=== PATIENT | male | born 1980 | race Caucasian/White ===

== ENCOUNTER 2021-12-06 12:01 | Emergency (ER) | payer SELFPAY ==
[2021-12-06 12:26] VITALS: BP 167/111; PULSE 79; RESP 18; TEMP 36.7; O2SAT 98; BMI 25.6
[2021-12-06 13:45] LABS: Basophils # 0.1 10^3/uL (0.0-0.1); Basophils % 1.1 %; Eosinophils # 0.5 10^3/uL (0.0-0.8); Hematocrit 55.8 % (42.0-52.0); Hemoglobin 17.5 g/dL (11.7-16.6); Lymphocytes # 2.3 10^3/uL (0.8-4.8); Lymphocytes % 22.5 %; Mean Corpuscular HGB Conc 31.4 g/dL (30.0-36.0); Mean Corpuscular Hemoglobin 30.1 pg (28.0-34.0); Mean Corpuscular Volume 95.9 fl (80-94); Mean Platelet Volume 10.1 fL (7.4-10.4); Monocytes # 0.8 10^3/uL (0.2-0.9); Monocytes % 7.3 %; Neutrophils # 6.59 10^3/uL (1.8-7.7); Neutrophils % 63.9 %; Nucleated Red Blood Cells % 0 %; Platelet Count 227 10^3/cmm (130-400); Red Blood Count 5.82 10^6/uL (4.1-5.3); Red Cell Distribution Width 13.3 % (12.1-15.1); White Blood Count 10.3 10^3/uL (4.0-10.0)
[2021-12-06 14:14] LABS: Alanine Aminotransferase 153 U/L (0-41); Albumin Level 4.2 g/dL (3.5-5.2); Alkaline Phosphatase 131 U/L (40-130); Blood Urea Nitrogen 38 mg/dL (6-20); Calcium 9.2 mg/dL (8.5-10.5); Carbon Dioxide 22 mmol/L (22-29); Chloride 104 mmol/L (98-107); Glomerular Filtration Rate 31.2 mL/min (90-130); Glucose 83 mg/dL (65-115); Lipase 27 U/L (13-60); Osmolality Calculated 292 mOsm/kg (285-295); Sodium 137 mmol/L (136-145); Total Bilirubin 0.5 mg/dL (0.15-1.2); Total Protein 7.2 g/dL (6.6-8.7)
[2021-12-06 14:16] LABS: Anion Gap 16.5 (5-19); Aspartate Amino Transferase 74 U/L (0-40); Potassium 5.5 mmol/L (3.5-5.1)
--- NOTE | 2021-12-06 16:24 | ED_ITS ---
HPI - Abdominal Pain General: Chief Complaint: Abdominal Pain Stated Complaint: Abd pains Time Seen by Provider: 12/06/21 13:17 Source: patient Mode of arrival: ambulatory Limitations: no limitations History of Present Illness: 41-year-old male presents to the emergency room with complaints of of flank pain bilaterally. He states he has had it for the last 2 weeks. He has a history of polycystic kidney disease. Last few days has been worsening. Denies any dysuria urgency or frequency nausea vomiting or diarrhea. No hematochezia melena hematemesis coffee-ground emesis no chest pain. He has not noticed anything that exacerbates or relieves his symptoms. MD elicited complaint: flank pain Pertinent past history: other (Polycystic kidney disease) Onset (ago): week(s) (2) Pain Consistency: constant Location: L flank and R flank Severity: moderate Quality: aching Radiation: none Migration to: no migration Exacerbating factors: nothing Relieving factors: nothing Associated Symptoms: Reports GI cramping; Denies anorexia, belching, bloating, change in bowel habits, change in stool character, chills, constipation, diarrhea, dyspepsia, dysuria, excessive flatus, fever(s), heartburn, hematochezia, hematuria, hematemesis, fecal incontinence, loose stools, melena, nausea, poor appetite, syncope and vomiting Review of Systems Const: Denies: fever(s) or chills ENMT: Denies: throat pain, ear or mastoid pain, nasal discharge or nasal congestion Card: Denies: syncope Resp: Denies: dyspnea, productive cough or non-productive cough GI: Reports: GI cramping; Denies: nausea, vomiting, hematemesis, heartburn, diarrhea, constipation, bloating, belching, excessive flatus, fecal incontinence, change in bowel habits, change in stool character, hematochezia or melena : Denies: dysuria or hematuria Skin/Breast: Denies: rash or pruritus PFSH ED PFSH: Medical History (Updated 12/07/21 @ 06:10 by Juan Morales DO) Polycystic kidney disease Social History (Updated 12/07/21 @ 06:10 by Juan Morales DO) Smoking and tobacco status: current every day smoker Alcohol intake: current Physical Exam Const: GENERAL APPEARANCE: cooperative and comfortable ORIENTATION /CONSCIOUSNESS: Yes awake, Yes oriented to person, Yes oriented to place and Yes oriented to time HENMT: COMMON NORMALS: normocephalic, atraumatic and hearing grossly normal bilaterally HEAD & SCALP: normocephalic and atraumatic Resp: COMMON NORMALS: normal respiratory effort, No retractions, No use of accessory muscles and clear to auscultation bilaterally AUSCULTATION: clear to auscultation bilaterally Cardio: COMMON NORMALS: regular rate, regular rhythm and No murmurs present (Cardio) RATE: regular rate RHYTHM: regular rhythm GI: COMMON NORMALS: Soft to palpation and No hepatosplenomegaly present AUSCULTATION: Yes normoactive bowel sounds PALPATION: Yes Soft to palpation, No Tenderness to palpation present (GI), No Guarding due to palpation present (GI) and Yes No hepatosplenomegaly present Extremity: COMMON NORMALS: normal to inspection, capillary refill normal, no clubbing, cyanosis or edema, no calf tenderness and no pedal edema Neuro: SENSORIUM/ORIENTATION: Yes oriented to person, Yes oriented to place and Yes oriented to time Skin: COMMON NORMALS: no rashes or lesions noted GENERAL SKIN EXAM: no rashes or lesions noted Course Vital Signs: Vital signs: Vital Signs Temperature 98.1 F 12/06/21 12:26 Pulse Rate 79 12/06/21 12:26 Respiratory Rate 18 12/06/21 12:26 Blood Pressure 167/111 12/06/21 12:26 Pulse Oximetry 98 12/06/21 12:26 Oxygen Delivery Me thod 12/06/21 12:26 MDM - Abdominal Pain Medical Decision Making Mild hyperkalemia elevated creatinine and BUN. Patient given IV fluids he states he otherwise feels fine. He would like to follow-up as an outpatient will make arrangements for him to get a repeat BMP later this week. Given tramadol to use for pain. 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 Did stressed to him the importance of rechecking basic metabolic profile in the next couple of days. Medical Records I reviewed the patient's medical records. Lab Data I reviewed the patient's lab results. : 12/06/21 13:39 12/06/21 13:39 Labs/Radiology: Laboratory Results WBC 10.3 10^3/uL (4.0-10.0) H 12/06/21 13:39 RBC 5.82 10^6/uL (4.1-5.3) H 12/06/21 13:39 Hgb 17.5 g/dL (11.7-16.6) H 12/06/21 13:39 Hct 55.8 % (42.0-52.0) H 12/06/21 13:39 MCV 95.9 fl (80-94) H 12/06/21 13:39 MCH 30.1 pg (28.0-34.0) 12/06/21 13:39 MCHC 31.4 g/dL (30.0-36.0) 12/06/21 13:39 RDW 13.3 % (12.1-15.1) 12/06/21 13:39 Plt Count 227 10^3/cmm (130-400) 12/06/21 13:39 MPV 10.1 fL (7.4-10.4) 12/06/21 13:39 Neut % (Auto) 63.9 % 12/06/21 13:39 Lymph % (Auto) 22.5 % 12/06/21 13:39 [place] % (Auto) 7.3 % 12/06/21 13:39 Eos % (Auto) 5.0 % 12/06/21 13:39 Baso % (Auto) 1.1 % 12/06/21 13:39 Neut # (Auto) 6.59 10^3/uL (1.8-7.7) 12/06/21 13:39 Lymph # (Auto) 2.3 10^3/uL (0.8-4.8) 12/06/21 13:39 [place] # (Auto) 0.8 10^3/uL (0.2-0.9) 12/06/21 13:39 Eos # (Auto) 0.5 10^3/uL (0.0-0.8) 12/06/21 13:39 Baso # (Auto) 0.1 10^3/uL (0.0-0.1) 12/06/21 13:39 Nucleated RBC % (auto) 0 % 12/06/21 13:39 Nucleated RBCs # 0.0 /100WBC 12/06/21 13:39 Sodium 137 mmol/L (136-145) 12/06/21 13:39 Potassium 5.5 mmol/L (3.5-5.1) H 12/06/21 13:39 Chloride 104 mmol/L (98-107) 12/06/21 13:39 Carbon Dioxide 22 mmol/L (22-29) 12/06/21 13:39 Anion Gap 16.5 (5-19) 12/06/21 13:39 BUN 38 mg/dL (6-20) H 12/06/21 13:39 Creatinine 2.3 mg/dL (0.7-1.2) H 12/06/21 13:39 GFR Calculation 31.2 mL/min (90-130) L 12/06/21 13:39 Glucose 83 mg/dL (65-115) 12/06/21 13:39 Calculated Osmolality 292 mOsm/kg (285-295) 12/06/21 13:39 Calcium 9.2 mg/dL (8.5-10.5) 12/06/21 13:39 Total Bilirubin 0.5 mg/dL (0.15-1.2) 12/06/21 13:39 AST 74 U/L (0-40) H 12/06/21 13:39 ALT 153 U/L (0-41) H 12/06/21 13:39 Alkaline Phosphatase 131 U/L (40-130) H 12/06/21 13:39 Total Protein 7.2 g/dL (6.6-8.7) 12/06/21 13:39 Albumin 4.2 g/dL (3.5-5.2) 12/06/21 13:39 Globulin 3.0 g/dL (1.3-4.6) 12/06/21 13:39 Lipase 27 U/L (13-60) 12/06/21 13:39 Urine Color Yellow (Yellow) 12/06/21 16:33 Urine Appearance Clear (CLEAR) 12/06/21 16:33 Urine pH 5 (5-7) 12/06/21 16:33 Ur Specific [place] 1.015 (1.005-1.030) 12/06/21 16:33 Urine Protein 1+ (Negative) H 12/06/21 16:33 Urine Glucose (UA) Norm (Normal) 12/06/21 16:33 Urine Ketones Negative (Negative) 12/06/21 16:33 Urine Blood 2+ (Negative) H 12/06/21 16:33 Urine Nitrate Negative (Negative) 12/06/21 16:33 Urine Bilirubin Neg (Negative) 12/06/21 16:33 Urine Urobilinogen Norm mg/dL (Negative) 12/06/21 16:33 Ur Leukocyte Esterase Negative (Negative) 12/06/21 16:33 Urine RBC 0-4 /hpf (0-2) H 12/06/21 16:33 Urine WBC 0-4 /hpf (0-5) H 12/06/21 16:33 Ur Squamous Epith Cells 0-4 /hpf (0-5) H 12/06/21 16:33 Amorphous Sediment Not Reportable 12/06/21 16:33 Urine Bacteria None /hpf (NONE) 12/06/21 16:33 Hyaline Casts 0-4 /lpf H 12/06/21 16:33 Discharge Plan Discharge Patient Disposition: Home Clinical Impression: Polycystic kidney disease Condition: Stable Prescriptions: New tramadol 50 mg tablet 50 mg PO Q6H PRN (Reason: pain) Qty: 14 0RF Discharge Orders: Discharge ED (Routine); Ordered 12/06/21 Ordered By: Juan Morales Patient Instructions: Opioid Safety Activity Restrictions/Additional Instructions: Case management will call to arrange for follow-up for you. You need to have a basic metabolic profile rechecked in 2 days. Coding Level of Care Code ED Police Lieutenant for [place] Fwd Exam Detailed
[2021-12-06 16:46] LABS: Bilirubin Urine Neg (Negative); Blood Urine 2+ (Negative); Glucose Urine UA Norm (Normal); Ketones Urine Negative (Negative); Leukocyte Esterase Urine Negative (Negative); Nitrate Urine Negative (Negative); Protein Urine 1+ (Negative); Specific Gravity, Urine 1.015 (1.005-1.030); Urine Appearance Clear (CLEAR); Urine Color Yellow (Yellow); Urobilinogen Urine Norm (Negative); pH Urine 5 (5-7)
[2021-12-06 16:47] LABS: Add Urine Culture? No; Add Urine Microscopic? YES; Hyaline Casts Urine 0-4 /lpf; RBC Urine 0-4 /hpf (0-2); Squamous Epithelial Cell Urine 0-4 /hpf (0-5); WBC Urine 0-4 /hpf (0-5)
[2021-12-06] MEDS: sodium chloride 0.9% 1,000 ML 999 ML IV ×2 (17:09→17:38)
--- NOTE | 2021-12-07 13:38 | DCPLANNER ---
construction project manager had message to speak with patient about getting established with a primary care physician. construction project manager called phone number [phone] - unable to speak with patient at this time.
== END 2021-12-06 18:19 | disposition home or self-care (01) ==
PROVIDERS: Physician Assistant; Emergency Provider Family Medicine
DX: Q61.3 Polycystic kidney, unspecified (principal); F17.210 Nicotine dependence, cigarettes, uncomplicated
CPT/HCPCS: 80053; 81001; 83690; 85025; 99284; J7030

== ENCOUNTER 2024-09-04 21:44 | Emergency (ER) | payer SELFPAY ==
[2024-09-04 21:58] VITALS: BP 225/134; PULSE 86; RESP 16; TEMP 36.7; O2SAT 96; BMI 26.2
[2024-09-04 22:14] LABS: Bilirubin Urine Negative (Negative); Blood Urine 3+ (Negative); Glucose Urine UA Trace (Normal); Ketones Urine Negative (Negative); Leukocyte Esterase Urine Trace (Negative); Nitrate Urine Negative (Negative); Protein Urine 2+ (Negative); Specific Gravity, Urine 1.009 (1.005-1.030); Urine Appearance Clear (CLEAR); Urobilinogen Urine 0.2 mg/dL (Negative); pH Urine 6.5 (5-7)
[2024-09-04 22:16] LABS: Add Urine Microscopic? YES; Bacteria Urine None Seen /hpf; Hyaline Casts Urine 0-4 /lpf; RBC Urine >100 /hpf (0-2); Squamous Epithelial Cell Urine 0-5 /hpf (0-5)
[2024-09-04 22:18] LABS: Add Urine Culture? Yes; Urine Color Red (Yellow)
[2024-09-04 22:45] LABS: Basophils # 0.1 10^3/uL (0.0-0.1); Basophils % 1.1 %; Eosinophils # 0.8 10^3/uL (0.0-0.8); Eosinophils % 8.4 %; Hematocrit 36.2 % (37-53); Lymphocytes # 1.8 10^3/uL (0.8-4.8); Lymphocytes % 20.2 %; Mean Corpuscular HGB Conc 32.9 g/dL (30-55); Mean Corpuscular Volume 91.2 fl (82-101); Mean Platelet Volume 9.8 fL (7.4-10.4); Monocytes # 0.8 10^3/uL (0.2-0.9); Monocytes % 9.2 %; Neutrophils # 5.41 10^3/uL (1.8-7.7); Neutrophils % 60.9 %; Nucleated Red Blood Cells % 0 %; Platelet Count 235 10^3/cmm (157-399); Red Blood Count 3.97 10^6/uL (3.85-5.65); Red Cell Distribution Width 13.6 % (12.1-15.1)
[2024-09-04 23:04] LABS: Anion Gap 20.1 (5-19); Calcium 8.8 mg/dL (8.5-10.5); Carbon Dioxide 18 mmol/L (22-29); Chloride 104 mmol/L (98-107); Creatinine Clr Calc Pharmacy 17.2307; Glomerular Filtration Rate 8.8 mL/min (90-130); Glucose 85 mg/dL (65-115); Osmolality Calculated 308 mOsm/kg (285-295); Potassium 5.1 mmol/L (3.5-5.1); Sodium 137 mmol/L (136-145)
[2024-09-04 23:11] LABS: Blood Urea Nitrogen 81 mg/dL (6-20)
--- NOTE | 2024-09-04 23:15 | CTR_ITS ---
PROCEDURE INFORMATION: Exam: CT Abdomen And Pelvis Without Contrast Exam date and time: 09/04/2024 11:47 PM Age: 43 years old Clinical indication: Abdominal pain; Bilateral flank pain; Hematuria x 3 days; HX polycystic kidney disease TECHNIQUE: Imaging protocol: Computed tomography of the abdomen and pelvis without contrast. Radiation optimization: All CT scans at this facility use at least one of these dose optimization techniques: automated exposure control; mA and/or kV adjustment per patient size (includes targeted exams where dose is matched to clinical indication); or iterative reconstruction. COMPARISON: No relevant prior studies available. RADIATION DOSE METRICS: Total DLP (mGy-cm): 888.13 FINDINGS: Lungs: Clear basilar lung parenchyma. Pleural spaces: No pleural fluid. Heart: Normal heart size. Liver: Normal configuration. Homogeneous parenchyma. Gallbladder and biliary ducts: Postprandial gallbladder is contracted. Pancreas: No visible pancreatic edema. In the pancreatic tail there is a 7 mm low-attenuation focus with a posterior calcification which warrants further characterization. Spleen: Normal. No splenomegaly. Adrenal glands: Normal configuration. Kidneys and ureters: Enlarged polycystic kidneys are noted. No evidence of renal obstruction on either side. No evidence of perinephric hemorrhage. Stomach and bowel: Unremarkable. No obstruction. No mural thickening. Appendix: Prior appendectomy. Intraperitoneal space: No free air. No significant fluid collection. Vasculature: Normal caliber arterial structures. Lymph nodes: No enlarged lymph nodes. Urinary bladder: Unremarkable as visualized. Reproductive: Physiologic appearance for age. Bones/joints: No fracture or destructive lesion. Soft tissues: Unremarkable. CT/CT kidney stone [id number] IMPRESSION: 1. Findings of autosomal dominant polycystic kidney disease are demonstrated. No evidence of renal calculus or obstruction. Exact etiology of patient's hematuria is unclear. 2. Indeterminate 7 mm low-attenuation focus in the pancreatic tail warrants further characterization. Consider pancreas protocol MR on a nonemergent basis.
[2024-09-05 00:15] VITALS: BP 212/135; PULSE 79; O2SAT 98
[2024-09-05] MEDS: HYDROcodone-acetaminophen 5-325 mg Tablet 1 TAB PO (02:10)
--- NOTE | 2024-09-05 02:24 | ED_ITS ---
HPI - Male Genitourinary 2 General: Chief complaint: Urogenital-Male Stated complaint: Peeing blood Time Seen by Provider: 09/05/24 00:35 History of Present Illness: Patient comes in complaining of right flank pain and gross hematuria. Going on for a day. Pain just getting worse and he cannot tolerate anymore. He has a history of polycystic kidney disease. He is had a stable creatinine for some time with good renal function per him. Never needed dialysis or any further intervention other than follow-up. Reports the pain is severe. Related Data Previous Rx's ?Medication ?Instructions ?Recorded tramadol 50 mg tablet 50 mg PO Q6H PRN pain #14 ta bs 12/06/21 Allergies Allergy/AdvReac Type Severity Reaction Status Date / Time aspirin Allergy ADR-Nausea Verified 09/04/24 22:02 ceftriaxone (From Rocephin) Allergy Unknown Verified 09/04/24 22:02 cephalexin (From Keflex) Allergy ALGY-Hives Verified 09/04/24 22:02 codeine Allergy ADR-Nausea Verified 09/04/24 22:02 Penicillins Allergy ALGY-Hives Verified 09/04/24 22:02 [facility] ED 2 [facility]: Medical History (Updated 09/05/24 @ 03:25 by Brendon Cadena MD) Polycystic kidney disease Polycystic kidney disease Social History (Updated 12/07/21 @ 06:10 by Juan Morales DO) Smoking and tobacco/nicotine status: current every day tobacco/nicotine user Alcohol intake: current Course 2 Reevaluation(s): Reevaluation #1: Patient reevaluated, pain medicine has not quite kicked in yet. Did discuss case with nephrology who reports that we will need urology available. We do not have this. So working on transferring patient [facility] Time: 02:15 Reevaluation #2: Discussed the case with cold working supervisor at [facility] Time: 02:25 Vital Signs: Vital signs: Vital Signs Temperature 98.1 F 09/04/24 21:58 Pulse Rate 79 09/05/24 00:15 Respiratory Rate 16 09/04/24 21:58 Blood Pressure 212/135 09/05/24 00:15 Pulse Oximetry 98 09/05/24 00:15 Oxygen Delivery Me thod Room Air 09/04/24 21:58 MDM - Male Medical Decision Making 43-year-old male with gross hematuria and right flank pain. With a history of polycystic kidney disease. CT findings typical polycystic kidney disease that patient is known. But creatinine is significantly elevated from previous now at 6.8 with a BUN of 81. Patient having gross hematuria and no findings on CT for his hematuria. There is concern he may have a ruptured cyst. I spoke with our nephrology here who believes he needs transfer. I expressed understanding of this and called outside hospital for urology coverage. Spoke with urologist there who reports as well as he has IR coverage she will call us back in except. We did receive a call back from [facility] and they report they cannot accept the patient. The accepting physician is Dr. Stallworth. Patient has been advised that he is experiencing a medical emergency and should travel by ambulance. Medical Records I reviewed the patient's medical records. Lab Data I reviewed the patient's lab results. 09/04/24 22:40 09/04/24 22:40 Radiology Impressions Abdomen/Pelvis CT 09/04/24 23:15 IMPRESSION: 1. Findings of autosomal dominant polycystic kidney disease are demonstrated. No evidence of renal calculus or obstruction. Exact etiology of patient's hematuria is unclear. 2. Indeterminate 7 mm low-attenuation focus in the pancreatic tail warrants further characterization. Consider pancreas protocol MR on a nonemergent basis. Laboratory Results WBC 8.90 10^3/uL (3.29-11.43) 09/04/24 22:40 RBC 3.97 10^6/uL (3.85-5.65) 09/04/24 22:40 Hgb 11.90 g/dL (11.27-16.99) 09/04/24 22:40 Hct 36.2 % (37-53) L 09/04/24 22:40 MCV 91.2 fl (82-101) 09/04/24 22:40 MCH 30.0 pg (27-33) 09/04/24 22:40 MCHC 32.9 g/dL (30-55) 09/04/24 22:40 RDW 13.6 % (12.1-15.1) 09/04/24 22:40 Plt Count 235 10^3/cmm (157-399) 09/04/24 22:40 MPV 9.8 fL (7.4-10.4) 09/04/24 22:40 Neut % (Auto) 60.9 % 09/04/24 22:40 Lymph % (Auto) 20.2 % 09/04/24 22:40 [place] % (Auto) 9.2 % 09/04/24 22:40 Eos % (Auto) 8.4 % 09/04/24 22:40 Baso % (Auto) 1.1 % 09/04/24 22:40 Neut # (Auto) 5.41 10^3/uL (1.8-7.7) 09/04/24 22:40 Lymph # (Auto) 1.8 10^3/uL (0.8-4.8) 09/04/24 22:40 [place] # (Auto) 0.8 10^3/uL (0.2-0.9) 09/04/24 22:40 Eos # (Auto) 0.8 10^3/uL (0.0-0.8) 09/04/24 22:40 Baso # (Auto) 0.1 10^3/uL (0.0-0.1) 09/04/24 22:40 Nucleated RBC % (auto) 0 % 09/04/24 22:40 Nucleated RBCs # 0.0 /100WBC 09/04/24 22:40 Sodium 137 mmol/L (136-145) 09/04/24 22:40 Potassium 5.1 mmol/L (3.5-5.1) 09/04/24 22:40 Chloride 104 mmol/L (98-107) 09/04/24 22:40 Carbon Dioxide 18 mmol/L (22-29) L 09/04/24 22:40 Anion Gap 20.1 (5-19) H 09/04/24 22:40 BUN 81 mg/dL (6-20) H D 09/04/24 22:40 Creatinine 6.8 mg/dL (0.7-1.2) H* 09/04/24 22:40 GFR Calculation 8.8 mL/min (90-130) L 09/04/24 22:40 Glucose 85 mg/dL (65-115) 09/04/24 22:40 Calculated Osmolality 308 mOsm/kg (285-295) H 09/04/24 22:40 Calcium 8.8 mg/dL (8.5-10.5) 09/04/24 22:40 Urine Color Red (Yellow) A 09/04/24 22:06 Urine Appearance Clear (CLEAR) 09/04/24 22:06 Urine pH 6.5 (5-7) 09/04/24 22:06 Ur Specific [place] 1.009 (1.005-1.030) 09/04/24 22:06 Urine Protein 2+ (Negative) A 09/04/24 22:06 Urine Glucose (UA) Trace (Normal) H 09/04/24 22:06 Urine Ketones Negative (Negative) 09/04/24 22: Urine Blood 3+ (Negative) A 09/04/24 22: Urine Nitrate Negative (Negative) 09/04/24 22: Urine Bilirubin Negative (Negative) 09/04/24 22: Urine Urobilinogen 0.2 mg/dL (Negative) 09/04/24 22:06 Ur Leukocyte Esterase Trace (Negative) A 09/04/24 22:06 Urine RBC >100 /hpf (0-2) H 09/04/24 22:06 Urine WBC 6-10 /hpf (0-5) 09/04/24 22:06 Ur Squamous Epith Cells 0-5 /hpf (0-5) 09/04/24 22: Amorphous Sediment Not Reportable 09/04/24 22:06 Urine Bacteria None seen /hpf (NONE) 09/04/24 22: Hyaline Casts 0-4 /lpf H 09/04/24 22:06 All radiology interpretation(s) finalized by discharge Critical Care Time 2 Critical Care Time: Critical Care Time: Yes Total Critical Care Time: 33 Attestation: This case had a high probability of a clinically significant, sudden, or life threatening deterioration of this patient's condition which required my full and direct attention, intervention and personal management. Discharge Plan Discharge Patient Disposition: Xfer Short-Term Hosp Clinical Impression: Acute renal failure, Gross hematuria, Polycystic kidney disease Condition: Stable Print Language: Chinese Coding Level of Care Code ED [employer] Line Technician for [place]
[2024-09-05 03:43] VITALS: BP 195/123; PULSE 79; O2SAT 99
[2024-09-05 03:44] VITALS: BP 195/123; PULSE 79; O2SAT 99
== END 2024-09-05 03:47 | disposition short-term general hospital (02) ==
PROVIDERS: Emergency Provider Emergency Medicine
DX: Q61.3 Polycystic kidney, unspecified (principal); N17.9 Acute kidney failure, unspecified; R31.0 Gross hematuria; Z72.0 Tobacco use
CPT/HCPCS: 36415; 74176; 80048; 81001; 85025; 87086; 99284; J9999